=== PATIENT | male | born 1955 | race Caucasian/White ===

== ENCOUNTER 2025-04-08 05:22 | Day surgery (SDC) | payer OTHER, MEDICARE ==
[2025-04-08] MEDS ORDERED: Lidocaine 2% 20 ML MDV NERVRT ONE (05:23)
[2025-04-08] MEDS ORDERED: Lactated Ringers 1,000 ML IV ONE (05:23)
[2025-04-08] MEDS ORDERED: Propofol 200 MG/20 ML SDV IV ONE (05:23)
[2025-04-08] MEDS ORDERED: Propofol 200 MG/20 ML SDV ONE (05:26)
[2025-04-08] MEDS ORDERED: Lidocaine 2% 20 ML MDV ONE (05:26)
[2025-04-08] MEDS: Lactated Ringers 1,000 ML IV SCH (06:08)
== END 2025-04-08 08:03 | disposition home or self-care (01) ==
LOC: DL.ENDO 05:22
PROVIDERS: ATTEND Internal Medicine Gastroenterology
DX: Z12.11 Encounter for screening for malignant neoplasm of colon (principal); K64.8 Other hemorrhoids; K57.30 Diverticulosis of large intestine without perforation or abscess without bleeding; Z86.0100 Personal history of colon polyps, unspecified; E78.1 Pure hyperglyceridemia; I10 Essential (primary) hypertension; Z79.899 Other long term (current) drug therapy
CPT/HCPCS: 45378; J2003; J2704; J7120